=== PATIENT | male | born 1960 | race Caucasian/White ===

== ENCOUNTER 2024-02-20 14:27 | Outpatient (OUT) | payer OTHER, SELFPAY ==
--- NOTE | 2024-02-20 14:34 | ECG_ITS ---
[facility] Test Date: 2024-02-20 Pat Name: MICHELLE NUÑEZ Department: Room: - Gender: Male [employer]: : 1960 Requested By: Order Number: [id number] Reading MD: JACKIE BAKER Measurements Intervals Homer Rate: 69 P: 24 OK: 178 QRS: 32 QRSD: 101 T: 35 QT: 359 QTc: 386 Interpretive Statements SINUS RHYTHM ST ELEVATION, PROBABLY EARLY REPOLARIZATION [ST ELEVATION WITH NORMALLY INFLECTED T WAVE] No previous ECG available for comparison Electronically Signed On 02-20-2024 18:37:34 EDT by JACKIE BAKER
--- NOTE | 2024-02-20 15:08 | PM.PRESUREVA ---
History of Present Illness History of Present Illness Chief complaint: bph with obs Narrative: Patient presents for preadmission testing. The patient states he had a Yearly urology follow-up after his TURP in December of last year and he also had a local cystoscopy and it has been determined that he needs further testing for his prostate as well as bladder stones. The patient states he does have burning with urination and frequency with urination. He denies abdominal pain, nausea, vomiting, or any other complaints. Review of Systems ROS Narrative REVIEW OF SYSTEMS: Negative except as stated in HPI, ten or more systems reviewed. Constitutional: No fever, chills, weakness ENT: No sore throat or epistaxis Cardiovascular: No edema, chest pain, palpitations, or activity intolerance Respiratory: No shortness of breath, cough, or wheezing Musculoskeletal: No joint pain or swelling Neurological: No numbness, tingling, weakness, or headache Psychiatric: No mood changes PFSH PFSH Medical History (Updated 02/20/24 @ 15:12 by Loretta Dill NP) Atypical small acinar proliferation of prostate ?N42.32 - Atypical small acinar proliferation of prostate (ICD-10) Chronic prostatitis ?N41.1 - Chronic prostatitis (ICD-10) Bladder stones ?N21.0 - Calculus in bladder (ICD-10) Elevated PSA ?R97.20 - Elevated prostate specific antigen [PSA] (ICD-10) Urinary retention ?R33.9 - Retention of urine, unspecified (ICD-10) BPH with urinary obstruction ?N40.1 - Benign prostatic hyperplasia with lower urinary tract symptoms (ICD-10) ?N13.8 - Other obstructive and reflux uropathy (ICD-10) GERD (gastroesophageal reflux disease) ?K21.9 - Gastro-esophageal reflux disease without esophagitis (ICD-10) Surgical History (Updated 02/20/24 @ 14:50 by Loretta Dill NP) S/P cystoscopy ?Z98.890 - Other specified postprocedural states (ICD-10) H/O transurethral resection of prostate ?Z98.890 - Other specified postprocedural states (ICD-10) ?Z90.79 - Acquired absence of other genital organ(s) (ICD-10) Hx of prostate biopsy ?Z98.890 - Other specified postprocedural states (ICD-10) Family History (Updated 02/20/24 @ 14:50 by Loretta Dill NP) Other Bladder cancer Family history of stroke Social History (Updated 02/20/24 @ 14:45 by Loretta Dill NP) Within the past year, how often did you have a drink containing alcohol: never Score interpretation: A score less than 4 is consistent with normal alcohol consumption. Smoking status: Never smoker Non-prescribed substance use: denies use Previous occupational history: adult day care worker Highest level of school completed/degree received: high school graduate Meds Home Medications and Allergies Home Medications ?Medication ?Instructions ?Recorded ?Confirmed ?Type ferrous sulfate 324 mg (65 mg 324 mg PO DAILY 02/20/24 02/20/24 History iron) tablet,delayed release omeprazole 20 mg capsule,delayed 20 mg PO DAILY 02/20/24 02/20/24 History release tamsulosin 0.4 mg capsule 0.4 mg PO Q24H 02/20/24 02/20/24 History Allergies Allergy/AdvReac Type Severity Reaction Status Date / Time levofloxacin [From Levaquin] Allergy Joint Pain Verified 02/20/24 14:43 Exam Narrative Exam Narrative: Constitutional: Awake, alert, comfortable, well-appearing, nontoxic, interactive, vital signs as charted Head: Normocephalic, atraumatic Neck: Supple, normal appearance, normal range of motion, no meningeal signs, no lymphadenopathy Respiratory: No respiratory distress, breath sounds clear Cardiovascular: Regular rate and rhythm, strong and regular heart tones Abdomen: Nontender, normal bowel sounds, soft, no CVA tenderness Musculoskeletal: Normal gait, no swelling or edema Skin: No rashes or induration, no lesions, only visible skin inspected Neuro: No neurological deficits, normal sensation Psychiatric: Oriented ?3, normal affect Assessment and Plan Assessment and Plan (1) Atypical small acinar proliferation of prostate: (2) Urinary retention: (3) Elevated PSA: (4) Bladder stones: Plan Cystoscopy, litholapaxy, TURP scheduled with Dr. Snow March 05, 2024.
[2024-02-20 15:54] LABS: Anion Gap 10.3; BUN Creatinine Ratio 22.2; Calcium 9.3 mg/dL (8.5-10.1); Carbon Dioxide 28.6 mmol/L (21.0-32.0); Chloride 104 mmol/L (98-107); Estimated GFR (African America >60 (>=60); Estimated GFR (Non-African Ame >60 (>=60); Glucose 109 mg/dL (74-106); Potassium 3.9 mmol/L (3.5-5.1); Sodium 139 mmol/L (136-145)
[2024-02-20 15:56] LABS: Basophils Absolute Auto 0.1 10^3/uL (0.0-0.1); Eosinophils Absolute Auto 0.6 10^3/uL (0.0-0.7); Eosinophils Percent Auto 11.5 % (0.9-7.0); Hematocrit 42.6 % (42.0-54.0); Hemoglobin 13.7 g/dL (14.0-18.0); Immature Granulocytes Abs Auto 0.02 10^3/uL (0.00-0.03); Immature Granulocytes Pct Auto 0.4 % (0.0-0.5); Lymphocytes Absolute Auto 0.8 10^3/uL (1.2-3.8); Lymphocytes Percent Auto 16.5 % (20.5-60.0); Mean Corpuscular HGB Conc 32.2 g/dL (29.9-35.2); Mean Corpuscular Hemoglobin 27.3 pg (25.9-34.0); Mean Corpuscular Volume 84.9 fL (80.0-94.0); Mean Platelet Volume 10.1 fL (9.5-13.5); Monocytes Absolute Auto 0.5 10^3/uL (0.3-0.8); Monocytes Percent Auto 10.7 % (1.7-12.0); Neutrophils Absolute Auto 2.9 10^3/uL (1.4-6.5); Neutrophils Percent Auto 59.9 % (43.0-75.0); Platelet Count 212 10^3/uL (150-450); Red Blood Count 5.02 10^6/uL (4.70-6.10); White Blood Count 4.9 10^3/uL (4.0-11.0)
[2024-02-20 16:04] LABS: INR 0.97; Partial Thromboplastin Time 30.8 sec (22.3-36.2); Prothrombin Time 10.3 sec (9.0-11.6)
== END 2024-02-20 14:28 | disposition home or self-care (01) ==
LOC: PST 14:28
PROVIDERS: PCP Family Medicine; Visit Provider Urology
DX: Z01.810 Encounter for preprocedural cardiovascular examination (principal); Z01.812 Encounter for preprocedural laboratory examination; N40.1 Benign prostatic hyperplasia with lower urinary tract symptoms; K21.9 Gastro-esophageal reflux disease without esophagitis; R33.9 Retention of urine, unspecified; R97.20 Elevated prostate specific antigen [PSA]
CPT/HCPCS: 80048; 85025; 85610; 85730; 93005; G0463

== ENCOUNTER 2024-03-05 11:34 | Day surgery (SDC) | payer OTHER, SELFPAY ==
[2024-02-20 15:07] VITALS: BP 107/71; PULSE 76; TEMP 36.4; O2SAT 97; BMI 25.4
[2024-03-05] VITALS (12 sets, daily range): BP systolic 101–127; BP diastolic 58–79; PULSE 45–60; TEMP 35.8–36.4; O2SAT 90–97; BMI 25.4
[2024-03-05] MEDS: LACTATED RINGER'S SOLUTION 1,000 ML 50 ML IV (11:58)
[2024-03-05] MEDS: CEFAZOLIN SODIUM/DEXTROSE,ISO 2 GM/50 ML PIGGYBACK IV (12:55)
--- NOTE | 2024-03-05 15:24 | P.URON_ITS ---
Urology Surgery Operative Note Operative Note Procedure Date: 03/05/24 Time Out Performed: yes Pre-op Diagnosis: 1. Bladder stones 2. Benign prostatic hyperplasia Post-op Diagnosis: same as pre-op Procedures performed: 1. Cystolitholapaxy 2. Cystoscopy, transurethral resection of prostate Anesthesia: General-ET Primary Surgeon: Galilea Snow Complications: none Estimated blood loss (mL): 5 Findings: Moderate to severe L>R bilobar prostatomegaly mid-[place]. Patent bladder neck and proximal urethra. 1 cm stone in prostatic urethra. ~ 2x3cm stone in bladder. Laser lithotripsy of stones and removed. Bipolar TURP of prostate tissue. 2+ trabeculated bladder with multiple scattered cellules. Specimens: 1. bladder stones 2. prostate chips Drains: 22FR 3-way coude catheter Indications for Procedures: 64 year old male with history of retention and significant BPH with LUTS (126 cc prostate) s/p TURP 12/2022 who developed dysuria and was found to have bladder stones and prostatomegaly despite low PVR. After discussion of risks/benefits of management options, patient elected to proceed with TURP and cystolitholapaxy. Risks were discussed including but not limited to bleeding, pain, infection, damage to surrounding structures, bladder perforation, stricture, incontinence, erectile dysfunction and need for additional procedures. Detailed description of Procedure: Prior to the operating room, informed consent was obtained for the procedures described above. The patient was then taken to the operating suite, transferred to the operating table and received the appropriate dose of preoperative IV antibiotics. Gen. anesthesia ETT was administered and the patient was positioned in the lithotomy position, sterilely prepped and draped in the usual sterile fashion for this procedure. A final timeout was performed confirming the patient's identity, procedure and all present were in agreement to proceed. I began by inserting a 22 [place] rigid cystoscope into the patient's bladder and performed a thorough cystoscopy with the 30 and 70 degree lens with the findings as above. No bladder tumors or lesions. The urethra appeared to be normal without evidence of strictures or abnormalities. Bilateral ureters were seen in orthotopic position effluxing urine. A 1000W thulium laser fiber was used to break up the stones into smaller fragments, taking care not to injury underlying bladder. All fragments were irrigated out with Ellik. The cystoscope was removed and a 26 [place] bipolar resectoscope was inserted. Bipolar loop electrocautery was used to resect the obstructing prostate lobes down to capsule, starting on the left lateral lobe at the 5 o'clock position taking care to stay proximal to verumontanum. This was repeated on the right. Minimal anterior resection. The UOs were away from the resection field. Minimal takedown of bladder neck at 5 and 7 o'clock given patency of prior TURP defect. Specimens were sent for pathology. Excellent hemostasis was obtained with electrocautery loop and plasma button. The bladder was drained and inspected. There was no evidence of active bleeding from the resection bed. A 22-[place] 3- way coude catheter was inserted without difficulty, 40cc in balloon, irrigated with return of clear fluid. Normal saline CBI was started. The patient tolerated the procedure well without complication. Patient was extubated and sent to PACU for recovery. Plan: Admit for observation, CBI, wean to off in AM. Dc home tomorrow if he stays clear off of CBI. Follow up in 3-5 days for heaton removal and voiding trial. Other Provider present: No Urinary Catheter Management Urinary Catheter Management 3-way Urethral: Cath placed during this visit: yes Urethral indwelling: Yes Reason for continuing: surgical procedure Insertion date: 03/05/24
[2024-03-05] MEDS: HYDROCODONE/ACET 5-325 MG TABLET 1 TAB PO (17:06)
[2024-03-05] MEDS: SODIUM CHLORIDE IRRIG SOLUTION 3,000 ML 3000 ML IRR (18:20)
[2024-03-05] MEDS: CEFAZOLIN SODIUM/DEXTROSE,ISO 1 GM/50 ML IV.SOLN IV (20:18)
[2024-03-06] MEDS: SODIUM CHLORIDE IRRIG SOLUTION 3,000 ML 3000 ML IRR (00:06)
[2024-03-06 04:48] VITALS: BP 104/62; PULSE 54; TEMP 36.5; O2SAT 98
[2024-03-06] MEDS: CEFAZOLIN SODIUM/DEXTROSE,ISO 1 GM/50 ML IV.SOLN IV (05:15)
--- NOTE | 2024-03-06 05:34 | PC.NURSE ---
At 0430, nurse stopped CBI. Pts urine remained very pale yellow and clear. Nurse went over all education for leg/standard bag as well as UTI prevention. 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 Nurse attached leg bag and walked the halls with pt. Pt tolerated well. Nurse and pt returned to pts room and nurse changed linens and refreshed pts water. No pain reported by patient. Pt educated on how to order breakfast this morning.
[2024-03-06 08:54] VITALS: BP 100/41; PULSE 62; TEMP 36.5; O2SAT 94
== END 2024-03-06 10:36 | disposition home or self-care (01) ==
LOC: SURGOUT 13:08 → MS 15:40
PROVIDERS: PCP Family Medicine; Visit Provider Urology
PROC: (CPT 910; principal; 2024-03-05 12:30)
DX: N40.1 Benign prostatic hyperplasia with lower urinary tract symptoms (principal); R33.8 Other retention of urine; N21.0 Calculus in bladder; R97.20 Elevated prostate specific antigen [PSA]; K21.9 Gastro-esophageal reflux disease without esophagitis; N32.89 Other specified disorders of bladder
CPT/HCPCS: 52317; 52601; 36415; 82365; 88305; 96365; 99999; J0131; J0690; J1100; J1170; J2250; J2405; J2704; J3010